=== PATIENT | female | born 1965 | race Caucasian/White ===

== ENCOUNTER → 2024-09-10 08:03 | Outpatient (REF) | payer BC, SELFPAY | LOC: WDC 08:03 | PROVIDERS: ATTENDING PHYSICIAN Obstetrics & Gynecology Gynecology; FAMILY PHYSICIAN Family Medicine | DX: Z12.31 Encounter for screening mammogram for malignant neoplasm of breast (principal) | CPT/HCPCS: 77063; 77067 ==

== ENCOUNTER → 2024-09-16 08:54 | Outpatient (REF) | payer BC, SELFPAY | LOC: WDC 08:54 | PROVIDERS: ATTENDING PHYSICIAN Obstetrics & Gynecology Gynecology; FAMILY PHYSICIAN Family Medicine | DX: R92.8 Other abnormal and inconclusive findings on diagnostic imaging of breast (principal) | CPT/HCPCS: 76642 ==

== ENCOUNTER 2024-10-02 09:18 | Emergency (ER) | payer BC, SELFPAY ==
[2024-10-02 09:23] VITALS: BP 158/73
[2024-10-02 09:33] VITALS: BMI 27.4
--- NOTE | 2024-10-02 09:45 | ED.GENMED ---
History of Present Illness
General
Chief Complaint: Musculo-Skeletal Complaint
Source: patient
Exam Limitations: none
Time Seen by Provider: 10/02/24 09:41
History of Present Illness
History of Present Illness:
See MDM
Past History
Past History
ED Past Medical History: None
ED Past Surgical History: Orthopedic
Social History
Tobacco: Non-smoker
Alcohol: None
Phy Exam
Physical Exam
Physical Exam:
See MDM
Course
Orders/Labs/Results
Orders:
Orders
10/02/24 09:39
CR Hip - LT w/wo Pel 2-3 Vw* Urgent
Comment:
Reason For Exam: pain, previous replacement
Include a pelvis x-ray?: Yes
10/02/24 10:22
HYDROmorphone [Dilaudid] 1 mg IM NOW STA
Ketorolac [Toradol] 30 mg IM NOW STA
Vital Signs
Initial and Last Documented VS:
Initial Vital Signs
Temp Pulse Resp BP Pulse Ox
98.5 F 73 16 158/73 98
10/02/24 09:23 10/02/24 09:23 10/02/24 09:23 10/02/24 09:23 10/02/24 09:23
Last Documented Vital Signs
Temp Pulse Resp BP Pulse Ox
98.5 F 73 16 126/72 97
10/02/24 09:23 10/02/24 09:23 10/02/24 09:23 10/02/24 11:30 10/02/24 11:30
MDM/Problems Addressed
Differential Diagnosis Includes:
HPI and MDM Narrative:
58-year-old female presenting with left hip pain. She denies trauma. She states the pain has been ongoing for the past week or so. It has progressively worsened. Tylenol is not helping. She denies fevers or rash. On exam, she does have pain
overlying the left hip and quadricep. She has a negative straight leg test. Distal pulses and sensation grossly intact. There is no rash. No tenderness to deep venous palpation. Will obtain x-ray
Physical exam
General: Well appearing and non-toxic
HEENT: protecting airway
Neck: appears supple
CV: No evidence of cyanosis
Resp: No accessory muscle use
Abd: Non-distended
Extremities: No deformities. Left leg neurovascularly. Pain along palpation of left IT band and left quadricep. No edema or erythema
Neuro: alert
Psych: Normal affect
Skin: Intact
Problems Addressed including Acute and Chronic Conditions affecting care:
1. Left hip pain
Acuity: acute
Prognosis: stable
Details: Likely musculoskeletal. Will obtain x-ray
Updates
After pain medicine, patient states she is feeling much better and feels comfortable going home. Discussed follow-up with orthopedics
Differential Diagnosis (but not limited to): Muscle strain, hip contusion, sprain
Testing considered: DVT ultrasound rule out
Drug therapy (if applicable): OTC meds, please see d/c instruction regarding Rx drugs
Amount and/or Complexity of Data Reviewed
Clinical info obtained from: Patient
External data reviewed: N/A
Labs I independently reviewed (but not limited to): N/A
Radiology: X-ray independently reviewed: Left hip x-ray negative
Pulse Ox: not hypoxic
EKG independently reviewed: N/A
Dispatcher Radioactive Waste Disposal: N/A
Critical Care: N/A
Risk of Complication:
Social Determinants of health: Good social support
Discussed with other providers: N/A
Escalation of Care includes Admit/Obs: After being observed in the Emergency Department, pt stable for discharge.
Occasional wrong word or 'sound a like' substitutions may have occurred due to the inherent limitations of voice recognition software. Read the chart carefully and recognize, using context, where substitutions have occurred.
*Critical Care Note
Total Time (30-74mins, 75-104mins- exclusive of procedures): Not Applicable
ED Attending Note
-
Portions of this chart may have been created with voice recognition software.� Occasional wrong word or��sound alike� substitutions may have occurred due to the inherent limitations of voice recognition software.
Discharge Plan
Departure
Patient Disposition: Home (Routine Discharge)
Date of Disposition: 10/02/24
Time of Disposition: 12:28
Patient with high blood pressure during this ER visit?: No
Discharge Problem:
Acute hip pain
Prescriptions:
New
oxycodone 5 mg tablet
5 mg PO Q8H PRN (Reason: Pain) Qty: 14 0RF
Referrals:
Jo-Ann Ramirez, [Family Provider] -
Activity Restrictions/Additional Instructions:
As we discussed, it is not certain what is causing your pain. It could be muscular.
Please follow up with your doctor or orthopedist at the first available appointment, preferably this week. Please discuss PT versus MRI.
You were given a prescription for narcotics. If you require this pain medicine, please take a daily [id number] stool softener to avoid constipation.
Interventions
Interventions:
*Risk Screen - Suicide Last Done: 10/02/24 09:23
*General Assessment Last Done: 10/02/24 09:23
*Neglect/Abuse Screening Last Done: 10/02/24 09:33
*ED COVID-19 Vaccine History Last Done: 10/02/24 09:23
ED-Musculoskeletal Assessment Last Done: 10/02/24 09:33
Discharge Date and Time
Print Language: PASHTO
[2024-10-02] MEDS: DILAUDID 1 MG IM (10:51)
[2024-10-02] MEDS: TORADOL 30 MG IM (10:53)
[2024-10-02 11:30] VITALS: BP 126/72
[2024-10-02 12:00] VITALS: BP 133/70
== END 2024-10-02 12:50 | disposition home or self-care (01) ==
LOC: EMR 09:18
PROVIDERS: EMERGENCY PHYSICIAN Student in an Organized Health Care Education/Training Program; FAMILY PHYSICIAN Family Medicine
DX: M25.552 Pain in left hip (principal)
CPT/HCPCS: 99284; 96372 ×2; 73502

== ENCOUNTER → 2025-07-06 07:48 | Outpatient (REF) | payer BC, SELFPAY | LOC: RAD 07:48 | PROVIDERS: ATTENDING PHYSICIAN Physician Assistant Surgical; FAMILY PHYSICIAN Family Medicine | DX: M25.552 Pain in left hip (principal) | CPT/HCPCS: 76882 ==

== ENCOUNTER → 2025-09-14 07:34 | Outpatient (REF) | payer BC, SELFPAY | LOC: WDC 07:34 | PROVIDERS: ATTENDING PHYSICIAN Obstetrics & Gynecology Gynecology; FAMILY PHYSICIAN Family Medicine | DX: Z12.31 Encounter for screening mammogram for malignant neoplasm of breast (principal) | CPT/HCPCS: 77063; 77067 ==